=== PATIENT | male | born 1985 | race Asian ===

== ENCOUNTER 2021-10-13 10:14 | Outpatient (CLI) | payer OTHER, SELFPAY ==
[2021-10-13 15:11] LABS: Albumin* 4.5 g/dL (3.3-5.0)
[2021-10-13 15:12] LABS: Chloride* 102 mmol/L (96-114); Potassium* 4.4 mmol/L (3.6-5.1); Sodium* 138 mmol/L (135-149)
[2021-10-13 15:14] LABS: Bilirubin Total* 0.5 mg/dL (0.1-1.5); Carbon Dioxide* 30 mmol/L (20-32); Cholesterol* 202 mg/dL (90-199); Creatinine* 0.8 mg/dL (0.5-1.5); Estimated Glomerular Filt Rate 118 ml/min; Total Protein* 7.2 g/dL (6.0-8.3)
[2021-10-13 15:15] LABS: Alanine Aminotransferase* 44 U/L (4-50); Alkaline Phosphatase* 85 U/L (40-150); Aspartate Amino Transferase* 34 U/L (12-35); Blood Urea Nitrogen* 18 mg/dL (5-24); Calcium* 9.4 mg/dL (8.4-10.6); Glucose* 88 mg/dL (60-115); HDL Cholesterol* 72 mg/dL (>=40); LDL Cholesterol Calculated 101 mg/dL (<100); Triglycerides* 146 mg/dL (40-149)
[2021-10-13 15:45] LABS: HIV 1/2/P24 Combo Screen* Negative (Negative)
== END 2021-10-13 10:15 | disposition home or self-care (01) ==
PROVIDERS: PCP Family Medicine; Visit Provider Family Medicine
DX: Z00.00 Encounter for general adult medical examination without abnormal findings (principal); L64.9 Androgenic alopecia, unspecified; Z11.3 Encounter for screening for infections with a predominantly sexual mode of transmission; Z13.6 Encounter for screening for cardiovascular disorders; Z51.81 Encounter for therapeutic drug level monitoring
CPT/HCPCS: 80053; 80061; 86703

== ENCOUNTER 2022-09-21 09:32 | Emergency (ER) | payer OTHER, SELFPAY ==
[2022-09-21 09:56] VITALS: BP 143/84; PULSE 94; RESP 16; TEMP 36.2; O2SAT 97
--- NOTE | 2022-09-21 10:17 | CRLHL7_ITS ---
For Patients: As a result of the Century Cures Act, medical imaging exams and procedure reports are released immediately into your electronic medical record. You may view this report before your referring provider. If you have questions, please contact your health care provider. Indication: Right foot pain. Technique: Right foot 3 views Comparison: None Findings: Plantar calcaneal spur noted. A smaller posterior calcaneal spur is present. Bone island in the calcaneus. Midfoot alignment normal. No fracture. Impression: No sign of acute injury. Calcaneal spurs. Dictated by Evan Sigala MD @ 09/21/2022 12:03:45 PM (Electronically Signed)
[2022-09-21] MEDS: KETOROLAC 30 MG/ML inj IM (10:31)
--- NOTE | 2022-09-21 10:44 | ED.GENADULT ---
HPI - General Adult General Date Seen: 09/21/22 Chief complaint: Extremity Pain/Injury, Lower Stated complaint: R foot pain Time Seen by Provider: 09/21/22 10:11 Source: patient Mode of arrival: ambulatory Limitations: no limitations History of Present Illness HPI narrative: Patient is a 37-year-old male presented emergency department for right foot pain. He states the pain started yesterday. Pain is in his right midfoot and distal foot region the metacarpals. Does not go into his toes. States has pain started suddenly yesterday afternoon but got better by last night. Woke up today in the pain was worse again. This taking Tylenol ibuprofen with some improvement in his symptoms. He thinks it is due to him favoring his right foot due to chronic Achilles pain in his left foot. States this pain feels similar to his Achilles pain. Does admit that he has seen several providers including a area operations manager for his left Achilles it has not been diagnosed with anything. Patient states he cannot put pressure on his midfoot but is able to walk on his right heel. Denies numbness or weakness. Denies any known injuries. Related Data Home Medications Medication Instructions Recorded Confirmed [id number] C-E-herbal PO 10/23/21 10/23/21 Previous Rx's Medication Instructions Recorded clobetasol 0.05 % topical ointment 1 applic topical BID 2 weeks #15 10/13/21 grams finasteride 1 mg tablet 1 mg PO QDAY #90 tabs 10/13/21 diclofenac sodium 1 % topical gel 4 g topical QID #100 grams 10/23/21 Allergies Allergy/AdvReac Type Severity Reaction Status Date / Time No Known Allergies Allergy Unknown Verified 10/23/21 15:02 Review of Systems Narrative: Is otherwise negative unless stated in HPI PFSH PFSH Surgical History (Updated 10/13/21 @ 10:15 by Janice Hughes MD) History of cosmetic surgery ?Z98.890 - Other specified postprocedural states (ICD-10) History of appendectomy ?Z90.49 - Acquired absence of other specified parts of digestive tract (ICD-10) Family History (Updated 10/13/21 @ 10:21 by Janice Hughes MD) Family/Other Diabetes Other No family history of colorectal cancer Social History (Updated 09/30/21 @ 10:29 by Mena York) Narrative: Cigarette smoker- one half pack a day or less Smoking Status: Current every day smoker What tobacco products do you use: cigarettes Do you use any of these nicotine containing products: E-Cigarettes How often do you have a drink containing alcohol: 2-3 times a week How many standard drinks containing alcohol do you have on a typical day: 1 or 2 How often do you have six or more drinks on one occasion: Never AUDIT-C Alcohol total score: 3 Non-prescribed substance use: denies use Little interest or pleasure in doing things: several days Feeling down, depressed, or hopeless: several days service: No Exam Narrative: Exam Narrative: Const: Well-nourished, Well-developed, in mild distress Eyes: PERRL, no conjunctival injection, and symmetrical lids ENMT: Atraumatic external nose and ears. Moist mucous membranes. MSK:Extremities w/o deformity, Normal Active ROM. Tenderness noted to right midfoot and distal aspect of the foot. Skin: Warm, Dry. No rashes or lesions. Neuro: Normal Muscle tone, No focal neurological deficits. Psych: Awake, Alert, & Oriented x3. Appropriate mood and affect. Const: Vital Signs, click to edit/add: Vital Signs - 24 hr 09/21/22 09:56 Temperature 97.2 F L Pulse Rate [Pulse Oximeter] 94 Respiratory Rate 16 Blood Pressure [Ri ght Upper Arm] 143/84 H Pulse Oximetry 97 Oxygen Delivery Me thod Room Air Course Vital Signs Vital signs: Initial Vital Signs Temperature 97.2 F L 09/21/22 09:56 Temperature Source Temporal Artery Scan 09/21/22 09:56 Pulse Rate 94 09/21/22 09:56 Pulse Rhythm Regular 09/21/22 09:56 Respiratory Rate 16 09/21/22 09:56 Blood Pressure 143/84 H 09/21/22 09:56 Blood Pressure Mean 103 09/21/22 09:56 Blood Pressure Position Sitting 09/21/22 09:56 Pulse Oximetry 97 09/21/22 09:56 Oxygen Delivery Method Room Air 09/21/22 09:56 Vital Signs Temperature 97.2 F L 09/21/22 09:56 Pulse Rate 94 09/21/22 09:56 Respiratory Rate 16 09/21/22 09:56 Blood Pressure 143/84 H 09/21/22 09:56 Pulse Oximetry 97 09/21/22 09:56 Oxygen Delivery Method Room Air 09/21/22 09:56 Temperature 97.2 F L 09/21/22 09:56 Pulse Rate 94 09/21/22 09:56 Respiratory Rate 16 09/21/22 09:56 Blood Pressure 143/84 H 09/21/22 09:56 Pulse Oximetry 97 09/21/22 09:56 Oxygen Delivery Method Room Air 09/21/22 09:56 Medical Decision Making MDM Narrative Medical decision making narrative: It was 37-year-old male presenting for right foot pain. Pain started yesterday initially improved but then got worse again this morning. Has no injuries to the days where. States he had similar he had his left Achilles that is chronic. Denies any numbness or weakness of the foot. Ulcer was causes pain walk an x-ray of the foot to make sure there are no fractures. X-ray was done showing no acute abnormalities. He is otherwise doing well this time. Toradol was given for the pain he states he is feeling better. Patient states she does not need crutches but would like an Jak wrap. He will be discharged home. He agrees with this plan. To follow up with primary care provider. Imaging Data Left foot: Radiologist's impression: Indication: Right foot pain. Technique: Right foot 3 views Comparison: None Findings: Plantar calcaneal spur noted. A smaller posterior calcaneal spur is present. Bone island in the calcaneus. Midfoot alignment normal. No fracture. Impression: No sign of acute injury. Calcaneal spurs. Dictated by Evan Sigala MD @ 09/21/2022 12:03:45 PM Discharge Plan Discharge Clinical Impression: Acute foot pain Qualifiers: Laterality: right Qualified Code(s): M79.671 - Pain in right foot Patient Disposition: Home, Self-Care Condition: Stable Instructions: Arthralgia (ED) Additional Instructions: Follow-up with primary care provider. Take Tylenol ibuprofen for pain. Return for new worsening symptoms. Use the Jak wrap as needed for comfort. Prescriptions: No Action finasteride 1 mg tablet 1 mg PO QDAY Qty: 90 4RF clobetasol 0.05 % ointment 1 applic topical BID 14 Days Qty: 15 1RF [id number] C-E-herbal PO diclofenac sodium 1 % gel 4 g topical QID Qty: 100 0RF Rx Instructions: apply to single knee, ankle, foot; for foot includes sole/toes/top of foot Follow Up/Referrals: Provider,Not a Local [Primary Care Provider] - Stand Alone Forms: MyHealth Info Instructions
--- NOTE | 2022-09-21 12:10 | ED.NURSE ---
Jak wrap applied to pt R foot. Pt provided with work note.
--- NOTE | 2022-09-22 08:57 | ED.NURSE ---
chart accessed due to Kamla calling in and wanting crutches, as he had declined needing them. will dispense a pair as he was given the option to have them for discharge.
== END 2022-09-21 12:17 | disposition home or self-care (01) ==
PROVIDERS: Emergency Provider Student in an Organized Health Care Education/Training Program
DX: M79.671 Pain in right foot (principal)
CPT/HCPCS: 73630; 96372; 99282; 99283; J1885

== ENCOUNTER 2022-11-09 08:18 | Outpatient (CLI) | payer OTHER, SELFPAY | END 2022-11-09 08:19 | disposition home or self-care (01) | PROVIDERS: Visit Provider Family Medicine | DX: Z00.00 Encounter for general adult medical examination without abnormal findings (principal); R63.5 Abnormal weight gain; Z11.59 Encounter for screening for other viral diseases; Z11.3 Encounter for screening for infections with a predominantly sexual mode of transmission | CPT/HCPCS: 80053; 80061; 84443; 86592; 86703; 86803; 87341 ==

== ENCOUNTER 2023-02-18 12:05 | Outpatient (CLI) | payer OTHER, SELFPAY | END 2023-02-18 12:06 | disposition home or self-care (01) | LOC: NFLDUCREF 12:06 | PROVIDERS: Visit Provider Physician Assistant | DX: M19.90 Unspecified osteoarthritis, unspecified site (principal) | CPT/HCPCS: 84550 ==

== ENCOUNTER 2024-01-06 07:24 | Outpatient (CLI) | payer OTHER, SELFPAY ==
[2024-01-06 15:18] LABS: Chlamydia DNA Amplified* NOT DETECTED (No Detected); GC DNA Amplified* NOT DETECTED (No Detected)
== END 2024-01-06 07:25 | disposition home or self-care (01) ==
PROVIDERS: PCP Family Medicine; Visit Provider Family Medicine
DX: Z00.00 Encounter for general adult medical examination without abnormal findings (principal); Z11.3 Encounter for screening for infections with a predominantly sexual mode of transmission; Z13.6 Encounter for screening for cardiovascular disorders; Z11.59 Encounter for screening for other viral diseases
CPT/HCPCS: 80053; 80061; 86592; 86703; 87491; 87591